=== PATIENT | male | born 1980 | race Caucasian/White ===

== ENCOUNTER 2020-11-09 11:12 | Emergency (ER) | payer MEDICAID ==
[~2020-11-09] VITALS: Ht 162.6 cm; Wt 59.0 kg
[2020-11-09 11:17] VITALS: Ht 162.6 cm; Wt 59.0 kg
[2020-11-09 11:59] LABS: BASOPHIL % 0.3 % (0.2-1.5); PLATELET COUNT 244 x10^3mcL (152-348); RED CELL DISTRIBUTION WIDTH 13.3 % (12.1-16.2)
[2020-11-09 13:08] LABS: CALCIUM 8.6 mg/dL (8.5-10.1); CARBON DIOXIDE 24.7 mmol/L (21-32); CHLORIDE SERUM 103 mmol/L (98-107); CREATININE SERUM 0.7 mg/dL (0.7-1.3); GFR1 > 60 mL/min; GLUCOSE SERUM 118 mg/dL (74-106); SODIUM SERUM 138 mmol/L (136-145)
[2020-11-09 13:09] LABS: ALBUMIN 3.6 g/dL (3.4-5.0); LIPASE 140 IU/L (73-393)
[2020-11-09 13:33] LABS: ALKALINE PHOSPHATASE 64 U/L (46-116); ALT/SGPT 37 U/L (16-63); AST/SGOT 26 U/L (15-37); BILIRUBIN TOTAL 0.3 mg/dL (0.20-1.00); TOTAL PROTEIN, SERUM 6.7 g/dL (6.4-8.2)
[2020-11-09 14:13] VITALS: BP 106/65
== END 2020-11-09 14:13 | disposition home or self-care (01) ==
LOC: ED 11:12
PROVIDERS: Student in an Organized Health Care Education/Training Program
DX: K29.70 Gastritis, unspecified, without bleeding (principal)
CPT/HCPCS: J1885